=== PATIENT | female | born 1995 | race Caucasian/White ===

== ENCOUNTER 2020-01-07 04:36 | Inpatient (IN) | payer BC, OTHER ==
[2020-01-06 20:22] LABS: Urine Appearance CLEAR; Urine Bilirubin NEGATIVE (NEG); Urine Blood NEGATIVE (NEG); Urine Color YELLOW; Urine Glucose NEGATIVE (NEG); Urine Protein NEGATIVE (NEG); Urine Urobilinogen 0.2 mg/dL (0.2-1.0); Urine pH 6.5 (5.0-7.0)
[2020-01-06 20:29] LABS: Absolute Lymphocytes (CBC) 1.7 K/uL (0.7-4.9); Basophils % 0.7 % (0-1.3); Hematocrit 38.2 % (36.0-45.0); Lymphocytes % 21.2 % (15.3-44.8); MPV 9.5 fL (7.6-11.3); RBC Red Blood Cell Count 4.21 M/uL (3.86-4.86)
[2020-01-06 20:33] LABS: Protime INR 0.84
[2020-01-06 20:35] LABS: Urine Microscopic Reflex NO UMIC
[2020-01-07 00:26] LABS: RPR (Rapid Plasma Reagin) NON-REACT (NON-REACT)
[2020-01-07 04:49] VITALS: BMI 29.3
[2020-01-07] MEDS ORDERED: Ringers Lactate 1,000 ML IV PRN (04:54)
[2020-01-07] MEDS ORDERED: NA CIT/CITRIC AC 30 ML ORAL UDC PO ONE (04:57)
[2020-01-07] MEDS ORDERED: CEFAZOLIN 2 GM in NA CHLORIDE 0.9% 100 ML IVPB SCH (05:00)
[2020-01-07] MEDS ORDERED: METOCLOPRAMIDE 10 MG/2mL INJ IV SCH (05:00)
[2020-01-07] MEDS ORDERED: Ringers Lactate 1,000 ML IV SCH (05:00)
[2020-01-07] MEDS ORDERED: CEFAZOLIN/SWI 2gm 2 GM/20 ML SYR ONE (06:42)
[2020-01-07] MEDS ORDERED: CARBOPROST TROME 250 MCG/ML IM ONE ×2 (07:06→07:08)
[2020-01-07] MEDS ORDERED: METHYLERGONOVINE 0.2MG/ML AMP IM ONE ×2 (07:06→07:08)
[2020-01-07] MEDS ORDERED: OXYTOCIN 10 UNIT/ML ML IV ONE (07:37)
[2020-01-07] MEDS ORDERED: BUPIVACAINE 0.75% (PF) 2 ML SP ONE (07:38)
[2020-01-07] MEDS ORDERED: MORPHINE SULFATE/PF 1 MG/ML (10 ML AMP) ONE (07:38)
[2020-01-07] MEDS ORDERED: LIDOCAINE 1% MPF 5 ML VIAL ONE (07:46)
[2020-01-07] MEDS ORDERED: NS 0.9% VIAL 10 ML ONE ×2 (07:55→07:59)
[2020-01-07] MEDS ORDERED: Phenylephrine HCl 10 MG/ML 1 ML VIAL ONE (07:55)
[2020-01-07] MEDS ORDERED: EPHEDRINE SULF 50 MG/ML VIAL ONE (07:58)
[2020-01-07] MEDS ORDERED: DIPHENHYDRAMINE 25 MG TAB/CAP PO PRN (08:36)
[2020-01-07] MEDS ORDERED: ONDANSETRON 4 MG/2 ML VIAL IV PRN (08:36)
[2020-01-07] MEDS ORDERED: ONDANSETRON 4 MG (ODT) TAB PO PRN (08:36)
[2020-01-07] MEDS ORDERED: CEFAZOLIN 1GM (PREMIX IV) 50 ML IV ONE (08:36)
[2020-01-07] MEDS ORDERED: ACETAMINOPHEN 500 MG TAB PO PRN ×2 (08:36)
[2020-01-07] MEDS ORDERED: Oxycodone HCl/Acetaminophen 1 TAB TAB PO PRN ×2 (08:36)
[2020-01-07] MEDS ORDERED: BISACODYL 10 MG RECTAL SUPP RC PRN (08:36)
[2020-01-07] MEDS ORDERED: OXYTOCIN/LR 20 UNIT/1,000 ML BAG IV SCH (09:00)
[2020-01-07] MEDS ORDERED: FAMOTIDINE 20 MG/2 ML VIAL IV SCH (09:00)
[2020-01-07] MEDS ORDERED: PROMETHAZINE INJ 25 MG/ML AMP IM ONE (09:37)
--- NOTE | 2020-01-07 10:34 | PREOPHP ---
Date of Admission: 01/07/2020 A 24-year-old 3, para 1, for repeat section. Infection; blood loss; anesthetic comp lications; injury to bladder, bowel, ureter; postoperative complications; clots in legs; pneumonia di scussed. The patient knows fully well this does not constitute all the possible problems that could occur during or following delivery. Family History: Noncontributory. Allergies: SHE HAS NO ALLERGIES. Social History: Does not smoke. Physical Examination: HEENT: Clear. Pupils are equal, round, and reactive to light and accommodation. Conjunctivae well perfused. No oral, lingual, or buccal lesions. Chest and Lungs: Clear. Heart: Without murmurs, thrills, heaves, or rubs. Breasts: Without masses on previous visits. Abdomen: Term size. Extremities: Clear without edema, cyanosis, or clubbing. Baby is vertex. We will proceed with repeat section. Spinal block anesthesia. JUAN/LAURA Voice ID: [id number]
[2020-01-07] MEDS: D5LR 1,000 ML with OXYTOCIN 20 UNIT IV SCH ×2 (13:45)
--- NOTE | 2020-01-07 14:16 | PREOPHP ---
Date of Admission: 01/07/2020 History Of Present Illness: Nanette Lock is a 23-year-old 3, para 1, AB1, will be 39 weeks 1 day on Tuesday, for repeat section. Infection, blood loss, anesthetic complications, injury to bladder, bowel, ureter, postoperative complications, clots in legs, and pneumonia discussed. The patient knows fully well this does not constitute all the possible problems that could occur during or following surgery. Family History: Mother with hypertension and diabetes. Allergies: THE PATIENT HAS NO ALLERGIES. Social History: Does not smoke. Physical Examination: HEENT: Clear. Pupils equal, round, and reactive to light and accommodation. Conjunctivae are well perfused. No oral, lingual, or buccal lesions. Chest and Lungs: Clear. Heart: Without murmurs, thrills, heaves, or rubs. Breasts: Without masses on previous visits. Abdomen: Term size. Baby is vertex. Extremities: Clear without edema, cyanosis, or clubbing. Cervix is closed. Baby is -1 station. The patient will be tested for coverage prior to surgery on Tuesday. She knows I will be out of town this weekend if she goes in labor and on-call doctor will take care of her. Her is positive for COVID but has been in quarantine and is having no symptoms whatsoever. He will be tested again before Tuesday but if he remains positive will be given a shield and gloves du ring the surgery. JUAN/LAURA Voice ID: [id number]
[2020-01-07] MEDS: KETOROLAC 30 MG/ML INJ IV PRN (16:00)
[2020-01-07] MEDS ORDERED: CEFAZOLIN/SWI 2gm 2 GM/20 ML SYR IV ONE (16:30)
--- NOTE | 2020-01-07 19:10 | OP ---
Surgeon: Jose Lopez MD Ski Binding Fitter And Repairer: Dr. Barrett. Anesthesiologist: Dr. eL. Indications: A 24-year-old 3, para 1, for repeat section. Rh positive, immune to R ubella, negative beta strep screen, negative probing screen. Full preoperative counseling concerning procedure and possible complications, including infection, blood loss, anesthetic complications, inj ury to bladder, bowel, ureter, postoperative complications, clots in legs, and pneumonia. The patien t knows fully well this does not constitute all the possible problems that could occur during or foll owing surgery. Anesthesia: Spinal block anesthesia. Description Of Procedure: After prepping and draping, the patient was placed in dorsal supine positi on. Time-out was performed. Pfannenstiel incision was created over the previous incision site. The incision was carried to the fascia. The fascia was incised and incision carried transversely bilate rally. Anterior fascial planes was developed with both blunt and sharp dissection. The underlying r ectus muscle and peritoneum entered. Low transverse bladder flap developed. Low transvers e uterine incision created. A 7 pounds 7 ounces male infant was delivered through the incision witho ut difficulties, Apgars 9 and 9. Cord blood specimen was obtained. Placenta was removed manually. Uterus cleared of clot and blood and exteriorized. Cervical os closed. Cervical os dilated with rin g clamp. The uterus closed with a running locked stitch of 1 chromic followed by 3-4 stitches along the suture line for complete hemostasis. Mild hypertonicity. 0.2 mg of Methergine IM. Estimated bl ood loss 850 mL. Uterus was replaced in the peritoneal cavity after gutters cleared of clot and bloo d. Further inspection showed no further bleeding. Muscles closed with 0 Vicryl two interrupted sutu res. The fascia closed with 1 Vicryl running from either angle to the midline. Subcutaneous tissue was closed with 2-0 plain and 3-0 Vicryl was used for subcuticular closure. The patient has been giv en 2 g of Ancef prior to the procedure. Tolerated all procedures well. Transferred back to her room in good condition. Final Diagnoses: Term intrauterine at 39+ weeks, repeat section, spinal block ane sthesia, mild hypertonicity. JAIC/MODL Voice ID: [id number] Report ID: [id number]
[2020-01-07] MEDS: IBUPROFEN 600 MG TAB PO PRN (23:04)
[2020-01-08] MEDS: KETOROLAC 30 MG/ML INJ IV PRN (01:00)
[2020-01-08] MEDS: D5LR 1,000 ML with OXYTOCIN 20 UNIT IV SCH ×2 (05:30)
--- NOTE | 2020-01-08 09:13 | PN ---
Postoperatively done quite well. H and H with basically no change. Lochia is normal. Vitals are al l normal. She has no complaints or problems. We will discontinue [place] and IV and start her ambulat ing. The patient reports she is hungry and we will feed her this morning. Full postop talk given. If all goes well, she will go home tomorrow. She has had her Tdap shot already. No post spinal bloc k problems. JUAN/LAURA Voice ID: [id number] Report ID: [id number]
[2020-01-08] MEDS: IBUPROFEN 600 MG TAB PO PRN (09:30)
[2020-01-08] MEDS: SIMETHICONE 125 MG TAB PO PRN ×2 (15:50→22:00)
[2020-01-08] MEDS: MAGNESIUM HYDROXIDE 8% 30 ML PO PRN (22:30)
[2020-01-09 07:15] VITALS: BP 112/75; TEMP 98.4
[2020-01-09] MEDS: MAGNESIUM HYDROXIDE 8% 30 ML PO PRN (07:44)
--- NOTE | 2020-01-09 10:48 | DS ---
Hospital Course: This is a 24-year-old, for repeat section at 39 weeks. She was delivered of a 7 pounds, 7 ounces male , Apgars 9 and 9. Spinal block anesthesia. Low transverse uterin e incision. 850 cc blood loss. Rh positive, immune to Rubella. Negative beta strep screen. Postop eratively afebrile, ambulating and voiding. Will be dismissed this morning to report back to my offi ce in 1 week for followup, to report any temperature elevation of 100 degrees or greater, severe pain , heavy bleeding, or any other type of abnormalities. Dismissed with tramadol for analgesia, althoug h she may elect to take Motrin instead. She has had her Tdap immunization. She has no post spinal b lock problems. Final Diagnosis: Term intrauterine 39 weeks. Repeat section. Spinal block anest mejiaia. JUAN/LAURA Voice ID: [id number] Report ID: [id number]
[2020-01-10 04:40] LABS: HBsAG Nonreactive (Nonreactive)
== END 2020-01-09 08:00 | disposition home or self-care (01) | DRG 788 ==
LOC: 2ND-WC 04:36 → EDSTATUS 07:30
PROVIDERS: ADMIT Specialist; ATTEND Specialist
PROC: 10D00Z1 Extraction of Products of Conception, Low, Open Approach (ICD-10-PCS; principal; 2020-01-07 07:30)
DX: O34.219 Maternal care for unspecified type scar from previous cesarean delivery (principal); Z3A.39 39 weeks gestation of pregnancy; Z37.0 Single live birth; Z11.59 Encounter for screening for other viral diseases
CPT/HCPCS: 36415; 81003; 85014; 85025; 85610; 85730; 86592; 86850; 86900; 86901; 87340; 88307; J0690; J2210; J2370; J2405; J2550; J2590; J2765; J7120; J7121; U0002